=== PATIENT | female | born 1980 | race Caucasian/White ===

== ENCOUNTER 2018-10-16 11:18 | Emergency (ER) | payer MEDICAID ==
[~2018-10-16] VITALS: Ht 162.6 cm; Wt 59.4 kg
[2018-10-16 11:23] VITALS: BP 131/69
--- NOTE | 2018-10-16 11:23 | NUR ---
PT TAKEN TO BED 12.
--- NOTE | 2018-10-16 11:30 | NUR ---
PT C/O RIGHT HIP PAIN SINCE YESTERDAY. PT DENIES ANY TRAUMA OR INJURY. PT STATES SHE WOKE UP YESTERDAY WITH PAIN AND TODAY IS WORSE.
[2018-10-16] MEDS ORDERED: KETOROLAC 30 MG/ML VIAL IM ONE (11:45)
[2018-10-16 12:12] VITALS: BP 131/69
--- NOTE | 2018-10-16 12:12 | NUR ---
Patient discharged with v/s stable. Written and verbal after care instructions given and explained. Patient alert, oriented and verbalized understanding of instructions. Ambulatory with steady gait. All questions addressed prior to discharge. ID band removed. Patient advised to follow up with PMD. Rx of Naprosyn and Valium given. Patient educated on indication of medication including possible reaction and side effects. Opportunity to ask questions provided and answered.
== END 2018-10-16 12:12 | disposition home or self-care (01) ==
LOC: MED 11:18
DX: M76.31 Iliotibial band syndrome, right leg (principal)
CPT/HCPCS: 96372; 99283; J1885

== ENCOUNTER 2022-01-25 09:10 | Emergency (ER) | payer MEDICAID, OTHER ==
[~2022-01-25] VITALS: Ht 157.5 cm; Wt 62.6 kg
[2022-01-25 09:13] VITALS: BP 114/71
--- NOTE | 2022-01-25 09:20 | NUR ---
pt wheelchair assist to bed
--- NOTE | 2022-01-25 09:27 | NUR ---
41 Y/O F BIB SELF C/O RIGHT OGDEN & LEFT ANKLE/FOOT PAIN 8/10 S/P FALL X TODAY 20 MIN AGO AT THE GYM. SHE FALL WHILE GOING UP THE STAIRS. NKA OR PMH
--- NOTE | 2022-01-25 09:41 | NUR ---
DR BLANDON AT BEDSIDE.
[2022-01-25] MEDS ORDERED: ACETAMINOPHEN EXTRA STRENGTH 500 MG TAB PO ONE (09:45)
[2022-01-25] MEDS ORDERED: IBUPROFEN 600 MG TAB PO ONE (09:45)
--- NOTE | 2022-01-25 09:53 | NUR ---
X-RAY AT BEDSIDE.
--- NOTE | 2022-01-25 10:26 | NUR ---
DR BLANDON AT BEDSIDE.
[2022-01-25] MEDS ORDERED: IBUP-2213 PO (10:30)
--- NOTE | 2022-01-25 10:50 | NUR ---
Patient discharged with v/s stable. Written and verbal after care instructions given and explained. Patient alert, oriented and verbalized understanding of instructions. Ambulatory with steady gait. All questions addressed prior to discharge. ID band removed. Patient advised to follow up with PMD. Rx of IBUPROFEN given. Opportunity to ask questions provided and answered.
--- NOTE | 2022-01-25 10:51 | NUR ---
Chart checked and completed. The patient's care was reviewed and supervised by Jacinta Palma RN.
== END 2022-01-25 10:50 | disposition home or self-care (01) ==
LOC: MED 09:10
DX: S93.402A Sprain of unspecified ligament of left ankle, initial encounter (principal); S80.812A Abrasion, left lower leg, initial encounter; W18.30XA Fall on same level, unspecified, initial encounter; Y93.89 Activity, other specified; Y92.89 Other specified places as the place of occurrence of the external cause; Y99.8 Other external cause status
CPT/HCPCS: 73590; 73610; 73630; 99284

== ENCOUNTER 2022-04-08 17:45 | Emergency (ER) | payer OTHER ==
[~2022-04-08] VITALS: Ht 162.6 cm; Wt 67.6 kg
[~2022-04-08 17:45] MED LIST: IBUP-2213 PO
[2022-04-08 19:19] VITALS: BP 124/79
--- NOTE | 2022-04-08 19:41 | NUR ---
ELVIN Villafana examining patient.
[2022-04-08] MEDS ORDERED: CYCLOBENZAPRINE 10 MG TAB PO ONE (19:55)
[2022-04-08] MEDS ORDERED: KETOROLAC 30 MG/ML VIAL IM ONE (19:55)
[2022-04-08] MEDS ORDERED: CYCL-711 PO (22:41)
[2022-04-08] MEDS ORDERED: LID5T TP (22:41)
[2022-04-08] MEDS ORDERED: IBUP-1842 PO (22:41)
[2022-04-08 22:46] VITALS: BP 120/82
--- NOTE | 2022-04-08 22:47 | NUR ---
Patient discharged with v/s stable. Written and verbal after care instructions given and explained. Patient alert, oriented and verbalized understanding of instructions. Ambulatory with steady gait. All questions addressed prior to discharge. ID band removed. Patient advised to follow up with PMD. Rx of Lidocaine, Ibuprofen and Flexeril given. Patient educated on indication of medication including possible reaction and side effects. Opportunity to ask questions provided and answered.
[2022-04-09] MEDS ORDERED: LIDOCAINE 5% 1 EA PATCH TP SCH (09:00)
== END 2022-04-08 22:47 | disposition home or self-care (01) ==
LOC: EDBD → MED 17:45
DX: M54.50 Low back pain, unspecified (principal); Z79.899 Other long term (current) drug therapy; V89.2XXA Person injured in unspecified motor-vehicle accident, traffic, initial encounter; Y93.89 Activity, other specified; Y92.89 Other specified places as the place of occurrence of the external cause; Y99.8 Other external cause status
CPT/HCPCS: 72110; 96372; 99283